=== PATIENT | male | born 1975 | race Caucasian/White ===

== ENCOUNTER 2020-02-10 10:20 | Emergency (ER) | payer SELFPAY ==
[~2020-02-10] VITALS: Ht 182.9 cm; Wt 119.3 kg
[2020-02-10 10:27] VITALS: Ht 182.9 cm; Wt 119.3 kg
[2020-02-10 12:35] VITALS: BP 217/118
== END 2020-02-10 12:35 | disposition home or self-care (01) ==
LOC: ED 10:20
DX: M54.5 Low back pain (principal); I10 Essential (primary) hypertension; Z98.84 Bariatric surgery status
CPT/HCPCS: J1885